=== PATIENT | male | born 2000 | race African-American/Black ===

== ENCOUNTER 2024-08-03 14:15 | Emergency (ER) | payer OTHER ==
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
[2024-08-03] MEDS: ACETAMINOPHEN TAB 500 MG TAB PO STA (14:46)
[2024-08-03] MEDS: DIPH,PERTUS(ACELL)TETVAC-LF 0.5 ML VIAL IM ONE (14:49)
[2024-08-03] MEDS: MUPIROCIN 2% OINT 22 GM TUBE TOPICAL STA (14:58)
[2024-08-03 15:15] VITALS: BP 130/72; PULSE 70; RESP 18; TEMP 98.1
== END 2024-08-03 15:14 | disposition home or self-care (01) ==
LOC: EC 14:15
DX: T21.25XA Burn of second degree of buttock, initial encounter (principal); T31.0 Burns involving less than 10% of body surface; F17.200 Nicotine dependence, unspecified, uncomplicated; Z91.018 Allergy to other foods; Z23 Encounter for immunization
CPT/HCPCS: 90715; 99283; 99406